=== PATIENT | male | born 1975 | race Caucasian/White ===

== ENCOUNTER 2016-10-19 18:51 | Emergency (ER) | payer BC ==
[~2016-10-19] VITALS: Ht 170.2 cm; Wt 90.3 kg
[2016-10-19 19:35] VITALS: BP 131/80
[2016-10-19] MEDS ORDERED: NACL 0.9% 2,500 ML IV ONE (20:41)
--- NOTE | 2016-10-19 20:41 | NUR ---
TO ER BED 5
[2016-10-19] MEDS ORDERED: INSULIN HUMAN REGULAR 100 UNITS/ML 10 ML VIAL IVP ONE (20:45)
--- NOTE | 2016-10-19 21:23 | NUR ---
PATIENT PRESENTS TO ED WITH HIGH BS OF 425MG/DL . PT STATES HE TOOK HIS BS AT HOME AND NOTICED HOW HIGH IT WAS. PT REPORTS FACIAL NUMBNESS AT THIS TIME . DENIES N/V/D; SKIN IS PINK/WARM/DRY; AAOX4 WITH EVEN AND STEADY GAIT; LUNGS CLEAR BL; HR EVEN AND REGULAR; PT DENIES ANY FEVER, CP, SOB, OR COUGH AT THIS TIME; PATIENT STATES PAIN OF 0/10 AT THIS TIME; VSS; PATIENT POSITIONED FOR COMFORT; HOB ELEVATED; BEDRAILS UP X2; BED DOWN. ER MD MADE AWARE OF PT STATUS. AT BEDSIDE
[2016-10-19 22:46] VITALS: BP 129/80
--- NOTE | 2016-10-19 22:46 | NUR ---
Patient discharged with v/s stable. Written and verbal after care instructions given and explained. Patient verbalized understanding. Ambulatory with steady gait. All questions addressed prior to discharge. Advised to follow up with PMD. AT BEDSIDE
== END 2016-10-19 22:46 | disposition home or self-care (01) ==
LOC: MED 18:51
DX: E11.65 Type 2 diabetes mellitus with hyperglycemia (principal); F17.210 Nicotine dependence, cigarettes, uncomplicated
CPT/HCPCS: 36415; 80053; 81002; 82948; 85025; 96361; 96374; 99285; J1815; J7030

== ENCOUNTER 2017-09-06 12:48 | Emergency (ER) | payer BC ==
[~2017-09-06] VITALS: Ht 170.2 cm; Wt 84.8 kg
[2017-09-06 13:33] VITALS: BP 143/103
--- NOTE | 2017-09-06 13:43 | NUR ---
PT TAKEN TO OF4
--- NOTE | 2017-09-06 13:53 | NUR ---
C/O NON PRODUCTIVE COUGH X 1 WK WITH TOOTH ACH 5/10 AND BL EYE PAIN WITH YELLOW DISCHARGE HX; DM, HTN RX; METFORMIN, GLYPISIDE, LISINOPRIL, MUSINEX
--- NOTE | 2017-09-06 14:03 | NUR ---
JEN DRIVER AT BEDSIDE FOR EXAM
--- NOTE | 2017-09-06 14:25 | NUR ---
Patient discharged with v/s stable. Written and verbal after care instructions given and explained. Patient alert, oriented and verbalized understanding of instructions. Ambulatory with steady gait. All questions addressed prior to discharge. ID band removed. Patient advised to follow up with PMD. Rx of AMOXICILLIN, PROMETHAZINE, GENTAK, IBUPROFEN given. Patient educated on indication of medication including possible reaction and side effects. Opportunity to ask questions provided and answered.
[2017-09-06 14:31] VITALS: BP 139/83
== END 2017-09-06 14:25 | disposition home or self-care (01) ==
LOC: MED 12:48
DX: J01.90 Acute sinusitis, unspecified (principal); H10.89 Other conjunctivitis; R05 Cough; E11.9 Type 2 diabetes mellitus without complications; I10 Essential (primary) hypertension; F17.210 Nicotine dependence, cigarettes, uncomplicated
CPT/HCPCS: 82948; 99283

== ENCOUNTER 2019-09-19 18:17 | Emergency (ER) | payer OTHER ==
[~2019-09-19] VITALS: Ht 170.2 cm; Wt 90.7 kg
[2019-09-19 19:00] VITALS: BP 137/81
--- NOTE | 2019-09-19 19:00 | NUR ---
TO BED #08 AMBULATORY
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
[2019-09-19] MEDS: KETOROLAC 30 MG/ML VIAL IM ONE (20:17)
[2019-09-19 20:46] VITALS: BP 137/81
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
--- NOTE | 2019-09-20 06:39 | NUR ---
LATE ENTRY: COMPLETE ASSESSMENT DONE AT 1920. ENTERED AT INCORRECT TIME.
== END 2019-09-19 20:46 | disposition home or self-care (01) ==
LOC: MED 18:17
DX: S39.012A Strain of muscle, fascia and tendon of lower back, initial encounter (principal); I10 Essential (primary) hypertension; E11.9 Type 2 diabetes mellitus without complications; V49.9XXA Car occupant (driver) (passenger) injured in unspecified traffic accident, initial encounter; Y93.89 Activity, other specified; Y92.89 Other specified places as the place of occurrence of the external cause; Y99.8 Other external cause status
CPT/HCPCS: 96372; 99283; J1885